=== PATIENT | female | born 1965 | race Caucasian/White ===

== ENCOUNTER 2021-11-19 06:29 | Emergency (ER) | payer OTHER ==
[~2021-11-19] VITALS: Ht 157.5 cm; Wt 54.4 kg
--- NOTE | 2021-11-19 06:39 | NUR ---
pt bib ra for lethargy per lafd pt took xanax and tramadol. Er Md at bedside for MSE.
[2021-11-19] MEDS ORDERED: IV NORMAL SALINE 500 ML BAG IV ONE (06:45)
--- NOTE | 2021-11-19 07:05 | NUR ---
change of shift report to Shelia STERLING
[2021-11-19 07:06] LABS: HEMATOCRIT 33.5 % (31.2-41.9); MEAN CORPUSCULAR HEMOGLOBIN 32.8 uug (24.7-32.8); MEAN CORPUSCULAR VOLUME 98.3 fL (75.5-95.3); PLATELET COUNT (AUTO) 224 K/uL (179-408)
--- NOTE | 2021-11-19 07:25 | NUR ---
Received pt. AAOX4. with c/of pain as report just medicated. sbp of 150/100 HR of 65, rr 14, saturation of 97% on RA.
[2021-11-19 07:40] LABS: ALANINE AMINOTRANSFERASE 105 U/L (14-59); ALKALINE PHOSPHATASE 239 U/L (50-136); ASPARTATE AMINOTRANSFERASE 13 U/L (15-37); BILIRUBIN,DIRECT 0.1 mg/dL (0.0-0.2); BILIRUBIN,TOTAL 0.3 mg/dL (0.2-1.0); TOTAL PROTEIN, SERUM 6.4 g/dL (6.4-8.2)
[2021-11-19 07:45] LABS: ACETAMINOPHEN < 2.0 ug/mL (10-30)
[2021-11-19 07:52] LABS: CARBON DIOXIDE 27 mmol/L (21-32); CHLORIDE 108 mmol/L (98-107); CREATININE 0.7 mg/dL (0.6-1.3); GLUCOSE 184 mg/dL (74-106); POTASSIUM 4.3 mmol/L (3.5-5.1); UREA NITROGEN, BLOOD 27 mg/dL (7-18)
[2021-11-19 10:04] LABS: *BILIRUBIN,URIN NEGATIVE (NEGATIVE); *BLOOD, URINE NEGATIVE (NEGATIVE); *CLARITY,URINE CLEAR (CLEAR); *COLOR,URINE YELLOW (YELLOW); *KETONES,URINE NEGATIVE (NEGATIVE); *UROBILINOGEN,URINE 0.2 E.U./dl (NORMAL); LEUKOCYTE ESTERASE ,URINE TRACE (NEGATIVE); NITRITE, URINE NEGATIVE (NEGATIVE); PH,URINE 6.5 (5.0-8.0); UGLUCOSE NEGATIVE (NEGATIVE)
[2021-11-19 10:31] LABS: *AMPHETAMINE, URINE NEGATIVE (NEGATIVE); *CANNABINOID, URINE POSITIVE (NEGATIVE); *COCCAINE, URINE NEGATIVE (NEGATIVE); *OPIATE, URINE NEGATIVE (NEGATIVE); *PHENCYCLIDINE SCREEN,URINE NEGATIVE (NEGATIVE)
[2021-11-19 12:22] LABS: RBC,URINE 0-3 /HPF (0-3); WBC,URINE NONE SEEN /HPF (0-3)
[2021-11-19 12:23] LABS: BACTERIA,URINE NONE SEEN /HPF (NONE SEEN); SQUAMOUS EPITHELIAL CELL,UR FEW /HPF (NONE SEEN)
[2021-11-19 12:37] VITALS: BP 133/79
--- NOTE | 2021-11-19 12:42 | NUR ---
dcd instructions given to pt. and daughter, who verbalized understanding. Patient assisted to a wheelchair and taken out to her daughter's car. Patient left AAOx4. vitals stable.
== END 2021-11-19 12:50 | disposition home or self-care (01) ==
LOC: ER 06:33
DX: R53.83 Other fatigue (principal); R79.89 Other specified abnormal findings of blood chemistry; I10 Essential (primary) hypertension; Z79.84 Long term (current) use of oral hypoglycemic drugs; E46 Unspecified protein-calorie malnutrition; Z68.21 Body mass index [BMI] 21.0-21.9, adult; G47.00 Insomnia, unspecified; G89.29 Other chronic pain; E11.65 Type 2 diabetes mellitus with hyperglycemia; R30.0 Dysuria; Z79.899 Other long term (current) drug therapy
CPT/HCPCS: 99285; 70450; 71045; 80076; 80048; 81001; 85025; 84484; 36415; 93005; 73060; 72131; 74176; 80299; 80307; J7040; A4663